=== PATIENT | male | born 1940 | race Caucasian/White ===

== ENCOUNTER 2017-04-05 05:51 | Outpatient (CLI) | payer MEDICARE ==
[2017-04-05 06:58] LABS: Blood Urea Nitrogen 18 mg/dL (9-20)
[2017-04-05] MEDS ORDERED: NACL ONE (08:27)
--- NOTE | 2017-04-05 10:02 | Cat Scan Report ---
CT SCAN OF THE ABDOMEN AND PELVIS WITH CONTRAST: HISTORY: Abdominal pain. TECHNIQUE: Helical CT in 1.25mm intervals following IV contrast. Sagittal and coronal reconstructions. FINDINGS: The liver is normal in size and is without focal defect. No gallstones or biliary dilatation are noted. The spleen and pancreas demonstrate a normal size and attenuation with no evidence of abnormal mass. Bilateral renal cysts are identified. The largest cyst in the right kidney measures 4.9 cm and contains linear wall calcifications. The largest cyst in the left kidney measures 2.7 cm Superior pole. No evidence for renal mass, calculus or hydronephrosis. The ureters are normal course and caliber. The adrenal glands are normal. There is no intestinal obstruction or ascites. Normal appendix. The abdominal aorta is normal. No abnormalities are identified within the retroperitoneum or mesentery. There is no evidence of peritoneal air or fluid. There is no evidence of any abnormal masses or fluid collections within the pelvis. No adenopathy is identified. The bladder is normal. IMPRESSION: No acute process is identified in the abdomen or pelvis. Bilateral renal cysts.
== END 2017-04-05 05:52 | disposition home or self-care (01) ==
LOC: CT 05:51
PROVIDERS: ATTEND Surgery
DX: N28.1 Cyst of kidney, acquired (principal); N28.89 Other specified disorders of kidney and ureter
CPT/HCPCS: 36415; 74177; 82565; 84520; Q9967